=== PATIENT | male | born 1995 | race Caucasian/White ===

== ENCOUNTER 2016-06-07 23:18 | Observation (INO) | payer OTHER ==
[2016-06-07] MEDS ORDERED: ONDANSETRON 4 MG/2 ML VIAL IVP ONE (23:38)
[2016-06-07] MEDS ORDERED: HYDROmorphONE/DILAUDID 1 MG/ML SYR IVP ONE (23:38)
[2016-06-07 23:43] LABS: COLOR YELLOW; LEUKOCYTE ESTERASE,URINE 1+ (NEGATIVE); NITRITE,URINE NEGATIVE (NEGATIVE)
[2016-06-07 23:45] LABS: MUCUS 3+ /lpf (NONE-1+); RBC,URINE 50-182 /hpf (0-3); WBC,URINE 15-25 /hpf (0-3)
[2016-06-08 00:11] LABS: % IMMATURE GRANULYOCYTES 0.4 % (0.0-1.1); ABSOLUTE IMMATURE GRANULOCYTES 0.04 10^3/uL (0.00-0.10); ADD DIFF? NO; ADD MORPH? NO; ADD SCAN? NO; ATYPICAL LYMPHOCYTE FLAG 0 (0-99); FRAGMENT RBC FLAG 0 (0-99); HEMATOCRIT 43.2 % (40.0-51.0); HEMOGLOBIN 14.4 g/dL (13.7-17.5); LEFT SHIFT FLG 0 (0-99); LIPEMIA HEMOLYSIS FLAG 80 (0-99); MEAN CELL HEMOGLOBIN 29.9 pg (27.9-34.1); MEAN CELL HEMOGLOBIN CONCENTR. 33.3 g/dL (32.4-36.7); MEAN CELL VOLUME 89.8 fL (81.5-99.8); MEAN PLATELET VOLUME 10.9 fL (8.7-11.7); PLATELET CLUMPS FLAG 0 (0-99); PLATELET COUNT 228 10^3/uL (150-400); RED BLOOD CELL COUNT 4.81 10^6/uL (4.40-6.38); RED CELL DISTRIBUTION WIDTH 12.5 % (11.5-15.2)
[2016-06-08] MEDS ORDERED: HYDROmorphONE/DILAUDID 1 MG/ML SYR IVP ONE ×2 (00:19→00:46)
[2016-06-08 00:24] LABS: ANION GAP 14 mEq/L (8-16); CALCIUM 9.9 mg/dL (8.5-10.4); CARBON DIOXIDE 24 mEq/l (22-31); CHLORIDE 103 mEq/L (97-110); CREATININE 1.1 mg/dL (0.7-1.3); GLOMERULAR FILTRATION RATE > 60; GLUCOSE 103 mg/dL (70-100); SODIUM 141 mEq/L (134-144)
[2016-06-08] MEDS ORDERED: NS 1,000 ML IV ONE (00:46)
--- NOTE | 2016-06-08 00:53 | EDPHY ---
H & P Stated Complaint: RIGHT FLANK PAIN , HX OF KIDNEY STENTS DUE TO BLOOD CLOTS IN PAST Time Seen by Provider: 06/08/16 00:18 HPI/ROS: HPI The patient presents with right-sided flank pain which began at approximately 6: 00 p.m. tonight which started slowly and has gotten progressively worse. The pain is severe, does not radiate, is associated with nausea and vomiting. It is associated with hematuria. It is described as a dull ache. 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 The patient had a fall at this time and developed a stage IV kidney laceration and that is when this was discovered. He was stented at that time. The stent was removed in March, however he did not tolerate this well and thus the stent was replaced. He about 3 weeks ago had similar pain which resolved after about 6-8 hours. At that time it was thought that there was some blood or mucus plugging his stent. He is currently followed by Dr. Headr , a urologist in [place]. REVIEW OF SYSTEMS Constitutional: No fever, no chills. Eyes: No discharge. ENT: No sore throat. Cardiovascular: No chest pain, no palpitations. Respiratory: No cough, no shortness of breath. Gastrointestinal: No abdominal pain, no vomiting. Genitourinary: No hematuria. Musculoskeletal: No back pain. Skin: No rashes. Neurological: No headache. PMHx: UJP obstruction, hx of splenic injury Soc Hx: visiting from [place] for a lacrosse tournament PHYSICAL General Appearance: Alert, no distress Eyes: Pupils equal and round no pallor or injection ENT, Mouth: Mucous membranes moist Respiratory: There are no retractions, lungs are clear to auscultation Cardiovascular: Tachycardic rate and reg rhythm Gastrointestinal: Abdomen is soft and non-tender, no masses, bowel sounds normal Back: Right flank tender to palpation Neurological: A&O, moves all extremities Skin: Warm and dry, no rashes Musculoskeletal: Neck is supple non tender Extremities: symmetrical, full range of motion Psychiatric: Patient is oriented X 3, there is no agitation Source: Patient, Family Exam Limitations: No limitations - Personal History Current Tetanus/Diphtheria Vaccine: Yes Current Tetanus Diphtheria and Acellular Pertussis (TDAP): Yes - Medical/Surgical History Hx Asthma: No Hx Chronic Respiratory Disease: No Hx Diabetes: No Hx Cardiac Disease: No Hx Renal Disease: Yes Hx Cirrhosis: No Hx Alcoholism: No Hx HIV/AIDS: No Hx Splenectomy or Spleen Trauma: No Other PMH: UPJ OBSTRUCTION, KIDNEY LAC, STENT IN KIDNEY, - Social History Smoking Status: Never smoked Constitutional: Initial Vital Signs Temperature (C) 36.8 C 06/07/16 23:19 Heart Rate 73 06/07/16 23:19 Respiratory Rate 18 06/07/16 23:19 Blood Pressure 152/76 H 06/07/16 23:19 O2 Sat (%) 92 06/07/16 23:19 O2 Delivery Mode Room Air Allergies/Adverse Reactions: No Known Allergies Allergy (Unverified 06/07/16 23:22) Home Medications: Medication Instructions Recorded Naproxen 250 mg PO BID 06/07/16 Medical Decision Making - Diagnostics Imaging: Renal ultrasound demonstrates severe right-sided hydronephrosis, discussed with Dr. Byrd of Radiology, images were reviewed by myself. Differential Diagnosis: This is an otherwise healthy 21-year-old male with history of UPJ obstruction, currently being managed with stent, who presents with acute onset of right- sided flank pain accompanied by nausea and vomiting as well as hematuria. On exam, he is uncomfortable appearing, with flank tenderness. Differential diagnosis includes stent occlusion, pyelonephritis, ureterolithiasis. In the emergency room, the patient was given IV fluids and several rounds of pain medication with some improvement in his pain. I had a long conversation with the patient's father who lives in [place] and was able to provide excellent historical features of the patient's clinical course. He is quite worried about his son and is unable to be with him currently because of the snowstorm on the [facility]. He does have his son's medical records including images which he can provide if needed. The case was discussed with Dr. Magdaleno of Urology and the urologist will see the patient in consultation tomorrow. We will hold on antibiotics for now with the patient's urine is likely not infected acutely. I will admit the patient to the hospitalist service, the case was discussed with Dr. Maravilla who will admit him. - Data Points Laboratory Results: Laboratory Results 06/07/16 23:50 06/07/16 23:50 03/13/17 03/13/17 03/13/17 23:50 23:50 23:25 WBC 10.31 10^3/uL H 10^3/uL (3.80-9.50) RBC 4.81 10^6/uL 10^6/uL (4.40-6.38) Hgb 14.4 g/dL g/dL (13.7-17.5) Hct 43.2 % % (40.0-51.0) MCV 89.8 fL fL (81.5-99.8) MCH 29.9 pg pg (27.9-34.1) MCHC 33.3 g/dL g/dL (32.4-36.7) RDW 12.5 % % (11.5-15.2) Plt Count 228 10^3/uL 10^3/uL (150-400) MPV 10.9 fL fL (8.7-11.7) Neut % (Auto) 69.3 % % (39.3-74.2) Lymph % (Auto) 21.9 % % (15.0-45.0) Lyman % (Auto) 6.2 % % (4.5-13.0) Eos % (Auto) 1.9 % % (0.6-7.6) Baso % (Auto) 0.3 % % (0.3-1.7) Nucleat RBC Rel Count 0.0 % % (0.0-0.2) Absolute Neuts (auto) 7.14 10^3/uL H 10^3/uL (1.70-6.50) Absolute Lymphs (auto) 2.26 10^3/uL 10^3/uL (1.00-3.00) Absolute Monos (auto) 0.64 10^3/uL 10^3/uL (0.30-0.80) Absolute Eos (auto) 0.20 10^3/uL 10^3/uL (0.03-0.40) Absolute Basos (auto) 0.03 10^3/uL 10^3/uL (0.02-0.10) Absolute Nucleated RBC 0.00 10^3/uL 10^3/uL (0-0.01) Immature Gran % 0.4 % % (0.0-1.1) Immature Gran # 0.04 10^3/uL 10^3/uL (0.00-0.10) Sodium 141 mEq/L mEq/L (134-144) Potassium 4.0 mEq/L mEq/L (3.5-5.2) Chloride 103 mEq/L mEq/L (97-110) Carbon Dioxide 24 mEq/l mEq/l (22-31) Anion Gap 14 mEq/L mEq/L (8-16) BUN 23 mg/dL mg/dL (7-23) Creatinine 1.1 mg/dL mg/dL (0.7-1.3) Estimated GFR > 60 Glucose 103 mg/dL H mg/dL (70-100) Calcium 9.9 mg/dL mg/dL (8.5-10.4) Urine Color YELLOW Urine Appearance HAZY Urine pH 5.0 (5.0-7.5) Ur Specific [place] 1.029 (1.002-1.030) Urine Protein 2+ H (NEGATIVE) Urine Ketones NEGATIVE (NEGATIVE) Urine Blood 3+ H (NEGATIVE) Urine Nitrate NEGATIVE (NEGATIVE) Urine Bilirubin NEGATIVE (NEGATIVE) Urine Urobilinogen NEGATIVE EU EU (0.2-1.0) Ur Leukocyte Esterase 1+ H (NEGATIVE) Urine RBC 50-182 /hpf H /hpf (0-3) Urine WBC 15-25 /hpf H /hpf (0-3) Ur Epithelial Cells Not Reported Urine Mucus 3+ /lpf H /lpf (NONE-1+) Ur Culture Indicated? INDICATED H (NI) Urine Glucose NEGATIVE (NEGATIVE) Medications Given: Discontinued Medications Acetaminophen (Tylenol) 1,000 mg PO EDNOW ONE Stop: 06/08/16 01:38 Last Admin: 06/08/16 02:00 Dose: 1,000 mg Hydromorphone HCl (Dilaudid) 0.5 mg IVP EDNOW ONE Stop: 06/07/16 23:39 Last Admin: 06/07/16 23:59 Dose: 0.5 mg Hydromorphone HCl (Dilaudid) 0.5 mg IVP EDNOW ONE Stop: 06/08/16 00:20 Last Admin: 06/08/16 00:20 Dose: 0.5 mg Hydromorphone HCl (Dilaudid) 0.5 mg IVP EDNOW ONE Stop: 06/08/16 00:47 Last Admin: 06/08/16 00:57 Dose: 0.5 mg Sodium Chloride (Ns) 1,000 mls @ 0 mls/hr IV ONCE ONE PRN Reason: Wide Open Stop: 06/08/16 00:47 Last Admin: 06/08/16 00:56 Dose: 1,000 mls Lidocaine HCl (Lidocaine Hcl 2%) 120 mg IVP ONCE ONE Stop: 06/08/16 01:33 Last Admin: 06/08/16 02:03 Dose: 120 mg Ondansetron HCl (Zofran) 4 mg IVP EDNOW ONE Stop: 06/07/16 23:39 Last Admin: 06/08/16 00:00 Dose: 4 mg Ondansetron HCl (Zofran Odt) 4 mg PO EDNOW ONE Stop: 06/08/16 00:58 Last Admin: 06/08/16 01:01 Dose: 4 mg Departure - Departure Disposition: [facility] Inpatient Acute Clinical Impression: Hydronephrosis, right, Ureteropelvic junction (UPJ) obstruction, Acute right flank pain, Hematuria Condition: Fair
[2016-06-08] MEDS ORDERED: ONDANSETRON 4 MG/2 ML VIAL ONE (00:55)
[2016-06-08] MEDS ORDERED: ONDANSETRON DISINTEGRATING 4 MG TAB PO ONE (00:57)
[2016-06-08] MEDS ORDERED: LIDOCAINE 2% 100 MG/5 ML SYR IVP ONE (01:32)
[2016-06-08] MEDS ORDERED: ACETAMINOPHEN 500 MG TAB PO ONE (01:37)
[2016-06-08] MEDS ORDERED: oxyCODONE IR 5 MG TAB PO PRN (02:14)
[2016-06-08] MEDS ORDERED: LORazepam 2 MG/ML INJ IVP PRN (02:14)
[2016-06-08] MEDS ORDERED: ONDANSETRON 4 MG/2 ML VIAL IVP PRN (02:14)
[2016-06-08] MEDS ORDERED: ACETAMINOPHEN 500 MG TAB PO PRN (02:14)
[2016-06-08] MEDS ORDERED: ONDANSETRON DISINTEGRATING 4 MG TAB PO PRN (02:14)
[2016-06-08] MEDS ORDERED: HYDROmorphONE/DILAUDID 1 MG/ML SYR IVP PRN (02:14)
[2016-06-08] MEDS: NS 1,000 ML IV SCH ×3 (02:30→17:22)
--- NOTE | 2016-06-08 05:43 | PDGENHP ---
History and Physical - Chief Complaint R flank pain - History of Present Illness Patient is a 21-year-old male with a history of right UPJ stricture requiring stenting after a kidney trauma in December 2015, who presents to the ED complaining severe right flank pain. Patient states since stricture was discovered in December, ureteral stent was placed, trial of removal of stent was attempted several months ago, however, stricture was still present, so ureteral stent was replaced. Since that time, patient has one episode of intense flank pain about 6 weeks ago, for which he went to the ED, it was determined his ureteral stent was clogged causing obstruction. He was observed and the obstruction cleared without intervention (was presumed to be a blood clot that passed the stent). He presents today again with acute flank pain consistent with his previous ED presentation. He states symptoms started at about 6pm with sharp pain, which intensified throughout the evening. He denies any associated fevers, chills, nausea, vomiting. He did pass some small flecks of blood in his urine yesterday and today. Patient is from [place] and in [place] with his [employer] team for a tournament. He denies any recent trauma to his flank or kidney. On arrival to the ED, patient was afebrile and hemodynamically stable, but in severe pain. abdominal ultrasound revealed severe right hydronephrosis. Labs revealed mild leukocytosis, normal BMP and UA was negative for evidence of infection, although did show hematuria. Urology was consulted by the ED and recommended admission, will evaluate need for percutaneous intervention in AM. Patient was then admitted to the hospital service for further management. History Information - Allergies/Home Medication List Allergies/Adverse Reactions: No Known Allergies Allergy (Unverified 06/07/16 23:22) Home Medications: Naproxen 250 mg PO BID 06/07/16 [Last Taken Unknown] I have personally reviewed and updated: family history, medical history, social history, surgical history - Past Medical History no pertinent PMH - Surgical History Additional surgical history: ureteral stent. wisdom teeth removal - Family History Positive for: non-pertinent - Social History Smoking Status: Never smoked Alcohol Use: Occasionally Drug Use: None Additional social history: Patient is a senior in college at [employer], in [place] for a lacrosse tournament with his college team. Originally from [place]. Review of Systems ROS: 10pt was reviewed & negative except for what was stated in HPI & below Physical Exam Temp Pulse Resp BP Pulse Ox 37.2 C 68 16 139/62 H 93 06/08/16 04:00 06/08/16 04:00 06/08/16 04:00 06/08/16 04:00 06/08/16 04:00 Constitutional: no apparent distress, appears nourished, uncomfortable Eyes: PERRL, anicteric sclera, EOMI Ears, Nose, Mouth, Throat: moist mucous membranes, hearing normal, ears appear normal, no oral mucosal ulcers Cardiovascular: regular rate and rhythym, no murmur, rub, or gallop, pulses symmetric bilaterally, No JVD, No edema Peripheral Pulses: 2+: dorsalis-pedis (R), dorsalis-pedis (L) Respiratory: no respiratory distress, no rales or rhonchi, clear to auscultation Gastrointestinal: normoactive bowel sounds, soft, non-tender abdomen, no palpable masses Genitourinary: no bladder fullness, no bladder tenderness, other (R CVA tenderness) Skin: warm, normal color, no rashes or abrasions, no fluctuance, no induration, No mottled Musculoskeletal: full muscle strength, no muscle tenderness, normal joint ROM, no joint effusions Neurologic: AAOx3, sensation intact bilaterally, CN II-XII Intact, No weakness, No numbness, No pronator drift Psychiatric: interacting appropriately, not anxious, not encephalopathic, thought process linear Lab Data & Imaging Review 06/07/16 23:50 06/07/16 23:50 WBC 10.31 10^3/uL (3.80-9.50) H 06/07/16 23:50 RBC 4.81 10^6/uL (4.40-6.38) 06/07/16 23:50 Hgb 14.4 g/dL (13.7-17.5) 06/07/16 23:50 Hct 43.2 % (40.0-51.0) 06/07/16 23:50 MCV 89.8 fL (81.5-99.8) 06/07/16 23:50 MCH 29.9 pg (27.9-34.1) 06/07/16 23:50 MCHC 33.3 g/dL (32.4-36.7) 06/07/16 23:50 RDW 12.5 % (11.5-15.2) 06/07/16 23:50 Plt Count 228 10^3/uL (150-400) 06/07/16 23:50 MPV 10.9 fL (8.7-11.7) 06/07/16 23:50 Neut % (Auto) 69.3 % (39.3-74.2) 06/07/16 23:50 Lymph % (Auto) 21.9 % (15.0-45.0) 06/07/16 23:50 Smyth % (Auto) 6.2 % (4.5-13.0) 06/07/16 23:50 Eos % (Auto) 1.9 % (0.6-7.6) 06/07/16 23:50 Baso % (Auto) 0.3 % (0.3-1.7) 06/07/16 23:50 Nucleat RBC Rel Count 0.0 % (0.0-0.2) 06/07/16 23:50 Absolute Neuts (auto) 7.14 10^3/uL (1.70-6.50) H 06/07/16 23:50 Absolute Lymphs (auto) 2.26 10^3/uL (1.00-3.00) 06/07/16 23:50 Absolute Monos (auto) 0.64 10^3/uL (0.30-0.80) 06/07/16 23:50 Absolute Eos (auto) 0.20 10^3/uL (0.03-0.40) 06/07/16 23:50 Absolute Basos (auto) 0.03 10^3/uL (0.02-0.10) 06/07/16 23:50 Absolute Nucleated RBC 0.00 10^3/uL (0-0.01) 06/07/16 23:50 Immature Gran % 0.4 % (0.0-1.1) 06/07/16 23:50 Immature Gran # 0.04 10^3/uL (0.00-0.10) 06/07/16 23:50 Sodium 141 mEq/L (134-144) 06/07/16 23:50 Potassium 4.0 mEq/L (3.5-5.2) 06/07/16 23:50 Chloride 103 mEq/L (97-110) 06/07/16 23:50 Carbon Dioxide 24 mEq/l (22-31) 06/07/16 23:50 Anion Gap 14 mEq/L (8-16) 06/07/16 23:50 BUN 23 mg/dL (7-23) 06/07/16 23:50 Creatinine 1.1 mg/dL (0.7-1.3) 06/07/16 23:50 Estimated GFR > 60 06/07/16 23:50 Glucose 103 mg/dL (70-100) H 06/07/16 23:50 Calcium 9.9 mg/dL (8.5-10.4) 06/07/16 23:50 Urine Color YELLOW 06/07/16 23:25 Urine Appearance HAZY 06/07/16 23:25 Urine pH 5.0 (5.0-7.5) 06/07/16 23:25 Ur Specific [place] 1.029 (1.002-1.030) 06/07/16 23:25 Urine Protein 2+ (NEGATIVE) H 06/07/16 23:25 Urine Ketones NEGATIVE (NEGATIVE) 06/07/16 23:25 Urine Blood 3+ (NEGATIVE) H 06/07/16 23:25 Urine Nitrate NEGATIVE (NEGATIVE) 06/07/16 23:25 Urine Bilirubin NEGATIVE (NEGATIVE) 06/07/16 23:25 Urine Urobilinogen NEGATIVE EU (0.2-1.0) 06/07/16 23:25 Ur Leukocyte Esterase 1+ (NEGATIVE) H 06/07/16 23:25 Urine RBC 50-182 /hpf (0-3) H 06/07/16 23:25 Urine WBC 15-25 /hpf (0-3) H 06/07/16 23:25 Ur Epithelial Cells Not Reported 06/07/16 23:25 Urine Mucus 3+ /lpf (NONE-1+) H 06/07/16 23:25 Ur Culture Indicated? INDICATED (NI) H 06/07/16 23:25 Urine Glucose NEGATIVE (NEGATIVE) 06/07/16 23:25 Visualized and Interpreted imaging results: Yes Interpretation: Renal US: severe R hydronephrosis Assessment & Plan Assessment: patient is a 21-year-old male with a history of right renal trauma the head resulted in UPJ stricture that required stenting. Ureteral stent had obstructed once before and the patient presents to the ED today with complaint of right flank pain. Imaging reveals obstruction of right ureteral stent with causing severe hydronephrosis again. Plan: # severe R hydronephrosis due to obstructed R ureteral stent This presentation occurred to the patient about 1 month ago and the obstruction cleared without need for intervention. Given severity of hydronephrosis seen on US, urology has been consulted. Will f/u uro recommendations regarding need for percutaneous intervention. There does not appear to be associated infection, will hold off on antibiotics at this time. Cont IVF hydration and pain control. # dispo: admit under observation status # gen: NPO for possible procedure Full code
[2016-06-08 06:25] LABS: % IMMATURE GRANULYOCYTES 0.3 % (0.0-1.1); ABSOLUTE IMMATURE GRANULOCYTES 0.02 10^3/uL (0.00-0.10); ADD DIFF? NO; ADD MORPH? NO; ADD SCAN? NO; ATYPICAL LYMPHOCYTE FLAG 10 (0-99); FRAGMENT RBC FLAG 0 (0-99); HEMATOCRIT 38.6 % (40.0-51.0); HEMOGLOBIN 12.8 g/dL (13.7-17.5); LEFT SHIFT FLG 0 (0-99); LIPEMIA HEMOLYSIS FLAG 80 (0-99); MEAN CELL HEMOGLOBIN 29.8 pg (27.9-34.1); MEAN CELL HEMOGLOBIN CONCENTR. 33.2 g/dL (32.4-36.7); PLATELET CLUMPS FLAG 0 (0-99); PLATELET COUNT 180 10^3/uL (150-400); RED BLOOD CELL COUNT 4.29 10^6/uL (4.40-6.38); RED CELL DISTRIBUTION WIDTH 12.5 % (11.5-15.2)
[2016-06-08 06:34] LABS: INR 1.12 (0.83-1.16); PROTIME(PATIENT) 14.3 SEC (12.0-15.0)
[2016-06-08 06:35] LABS: APTT 29.7 SEC (23.0-38.0)
[2016-06-08 06:56] LABS: ANION GAP 11 mEq/L (8-16); CALCIUM 9.5 mg/dL (8.5-10.4); CARBON DIOXIDE 24 mEq/l (22-31); CHLORIDE 107 mEq/L (97-110); CREATININE 1.1 mg/dL (0.7-1.3); GLOMERULAR FILTRATION RATE > 60; GLUCOSE 86 mg/dL (70-100); MAGNESIUM 2.1 mg/dL (1.6-2.3); POTASSIUM 4.2 mEq/L (3.5-5.2); SODIUM 142 mEq/L (134-144)
--- NOTE | 2016-06-08 08:57 | HOSPPROG ---
Hospitalist Progress Note Assessment/Plan: Patient is a 21-year-old male with a history of right renal trauma the head resulted in UPJ stricture that required stenting. Ureteral stent had obstructed once before and the patient presents to the ED today with complaint of right flank pain. Imaging reveals obstruction of right ureteral stent with causing severe hydronephrosis again. Ashlyn was admitted earlier this morning / I came by to follow up with him. Patient states his pain is better and he is anxious to be discharged. Explained to him that a urologist needs to take a look at his imaging data. He has significant hydronephrosis on the right side. # severe R hydronephrosis due to obstructed R ureteral stent -urology to see today -reviewed his case with admitting hospitalist physician -came by to f/u with him #Pyuria -Dr Duran spoke with urology who recommended holding off on abx # dispo: pending #. Plan: Dr Crane to further evaluate. Subjective: Ashlyn is feeling better. Wants to go as soon as possible. Objective: Vital Signs Temp Pulse Resp BP Pulse Ox 36.7 C 72 20 135/81 H 96 06/08/16 08:00 06/08/16 08:00 06/08/16 08:00 06/08/16 08:00 06/08/16 08:00 Laboratory Results 06/08/16 05:25 06/08/16 05:25 06/07/16 06/08/16 06/09/16 05:59 05:59 05:59 Intake Total 1100 Output Total 400 450 Balance 700 -450 PT 14.3 SEC (12.0-15.0) 06/08/16 05:25 INR 1.12 (0.83-1.16) 06/08/16 05:25 - Physical Exam Constitutional: no apparent distress, appears nourished, not in pain Eyes: PERRL Ears, Nose, Mouth, Throat: hearing normal Respiratory: no respiratory distress Genitourinary: other ( No flank pain) Skin: warm Musculoskeletal: full muscle strength Neurologic: AAOx3 Psychiatric: interacting appropriately ICD10 Worksheet Patient Problems: Problems Problem Status Onset Acute right flank pain Acute Hematuria Acute Hydronephrosis, right Acute Ureteropelvic junction (UPJ) obstruction Acute
[2016-06-08 11:53] VITALS: O2SAT 94
[2016-06-08 16:26] VITALS: BP 137/85; PULSE 64; RESP 18; TEMP 97.9
--- NOTE | 2016-06-08 18:10 | SOAPPROG ---
LEANNE Progress Note Assessment/Plan: Assessment: Renal colic with known right UPJ obstruction, s/p ureteral stent placement most recently in 04/2016. Doing well at this time. Plan: Discharge pt. Rx. for oxycodone provided. Dict. # [id number] Objective: Vital Signs Temp Pulse Resp BP Pulse Ox 36.6 C 64 18 137/85 H 94 06/08/16 16:00 06/08/16 16:00 06/08/16 16:00 06/08/16 16:00 06/08/16 16:00 Laboratory Results 06/08/16 05:25 06/08/16 05:25 06/07/16 06/08/16 06/09/16 05:59 05:59 05:59 Intake Total 1100 0 Output Total 400 1800 Balance 700 -1800 PT 14.3 SEC (12.0-15.0) 06/08/16 05:25 INR 1.12 (0.83-1.16) 06/08/16 05:25 ICD10 Worksheet Patient Problems: Problems Problem Status Onset Acute right flank pain Acute Hematuria Acute Hydronephrosis, right Acute Ureteropelvic junction (UPJ) obstruction Acute
--- NOTE | 2016-06-08 18:44 | GCON ---
[f rep st] CONSULTATION UROLOGY CONSULTATION DATE OF CONSULTATION: 06/08/2016 REFERRING PHYSICIAN: Hospitalist Service REASON FOR CONSULTATION: Symptomatic right ureteropelvic junction obstruction, status post stenting . HISTORY: This is a 21-year-old gentleman, who is currently in [place] for a lacrosse tournament an d is originally from the [facility], currently going to school in [place]. He started experie ncing right-sided flank pain that progressively quickly worsened yesterday evening, necessitating pr esentation in the emergency room early this morning. Ultrasound was performed, which revealed moder ate to severe right hydronephrosis. The patient was admitted for pain control thereafter. Since ad mission, the patient's condition has progressively improved. He is now asymptomatic and is voiding without difficulty. Prior to admission, he was experiencing some gross hematuria. He last played l [employer] on Tuesday, but denies any specific trauma. Past urologic history is remarkable for a right kidney laceration, which developed after falling gem n some stairs late last year. At that time, he presumably was found to have a ureteropelvic junctio n obstruction, in addition to the laceration, and ureteral stenting was performed in approximately 2015. The stent was subsequently removed in March. However, recurrent imaging revealed si gnificant obstruction of the right kidney, so a stent was replaced last month. This had all been do ne at [facility]. The plan at this point was to [facility]elling [facility] until the patient finished with college this semester and subsequently undergo definitive uretero pelvic junction repair. The patient denies any history of urinary tract infections, nor urinary tract issues prior to last y ear. PAST MEDICAL HISTORY: Possible gout. PAST SURGICAL HISTORY: Ureteral stenting as noted above. MEDICATIONS ON ADMISSION: Naprosyn 250 mg b.i.d. (for gouty diathesis). MEDICAL ALLERGIES: None known. FAMILY HISTORY: Noncontributory. SOCIAL HISTORY: The patient is single and is currently attending college at the [employer]. He is originally from [place] and is currently in [place] playing in a lacrosse tour nament. He is planning on returning to [place] on Tuesday. He denies the use of tobacco produ cts, nor illicit drugs. He consumes alcohol occasionally. REVIEW OF SYSTEMS: He is having some toe pain and tenderness related to gouty diathesis as mentione d above. Otherwise, negative except for mentioned in the HPI and past medical history. PHYSICAL EXAM: GENERAL: Well developed, well nourished white male, lying supine in bed, in no acut e distress. VITAL SIGNS: Blood pressure 137/85, pulse is 64, respirations 18, oxygen saturation is 94% on room air, temperature 36.6 Celsius. HEENT: Normocephalic, atraumatic. NECK: Supple. HEA RT: Regular rate. CHEST: Unlabored respiratory pattern. ABDOMEN: Soft without palpable masses. No obvious tenderness. No CVA tenderness presently. EXTREMITIES: Warm without cyanosis, clubbing , or edema. NEUROLOGIC: He is alert and oriented. He answers all questions appropriately with nor mal mood and affect. LABORATORY: CBC today is unremarkable. Chemistry panel is normal. Coagulation parameters normal. Urinalysis notable for 50-182 red blood cells and 15-25 white blood cells. No bacteria. Culture w as sent. IMAGING: KUB today: Upon my review, the right ureteral stent appears to be in good position. Daphne l ultrasound 06/07/2016: Upon my review, notable for moderate to severe right hydronephrosis. No o ther abnormalities are appreciated. There appears to be fairly good renal cortical preservation. L eft kidney is normal. IMPRESSION: Symptomatic right ureteropelvic junction obstruction with hydronephrosis and current in dwelling ureteral stent. The patient is currently doing much better and would like to be discharged , which I see no problem with at this time. PLAN: 1. Patient will be discharged with a prescription for oxycodone p.r.n. pain. He will also use Napr osyn or ibuprofen p.r.n. for less severe discomfort. 2. I have allowed him to continue playing lacrosse with the understanding that the more active he i s, the more stent-related discomfort and hematuria he may have, but I would not anticipate any irrev ersible damage ad a result of these symptoms. 3. The patient has been invited to contact me if he has any further issues while here in [place]. I have also discussed the situation with his father, and all questions were answered to both the micaela dewey and his father's satisfaction this evening. Thank you for this consultation. /[id number]/MODL
--- NOTE | 2016-06-08 20:24 | GDS ---
[f rep st] DISCHARGE SUMMARY DISCHARGE DIAGNOSES: 1. Severe right hydronephrosis due to an obstructed right ureteral stent. 2. Pyuria. CONSULTATIONS: Dr. Crane. BRIEF HISTORY: The patient is a 21-year-old male with a history of right renal trauma resulting in a UPJ stricture that required stenting. His stent had obstructed once before. The patient came to the emergency room today complaining of right flank pain. Imaging reveals obstruction of right ureteral stent causing severe hydronephrosis. He was seen and evaluated by Dr. Crane. He noted that the patient had symptomatic right ureteropelvic junction obstruction with hydronephrosis and current indwelling ureteral stent. The patient was doing markedly better and wanted to be discharged. Dr. Crane discharged him later this evening. He has allowed the patient to play lacrosse with the understanding that the more active he is, the more stent-related discomfort and hematuria he may have. He could follow up with Dr. Crane as needed if he has any further issues. CONDITION AT DISCHARGE: Stable. Blood pressure is 137/85, heart rate 64, respiratory rate 18, O2 saturation 94% , temperature is 36.6 Celsius. DISCHARGE MEDICATIONS: Please see the EMR. DISCHARGE INSTRUCTIONS: If he has worsening pain or any increasing blood with urination, return to the ER. /[id number]/MODL MTDD
== END 2016-06-08 18:27 | disposition home or self-care (01) ==
LOC: F3E 06-08 02:12
PROVIDERS: ADMIT Internal Medicine; ATTEND Internal Medicine
DX: N13.0 Hydronephrosis with ureteropelvic junction obstruction (principal); T83.86XA Thrombosis due to genitourinary prosthetic devices, implants and grafts, initial encounter; S37.09 Other injury of kidney; W10.8XXD Fall (on) (from) other stairs and steps, subsequent encounter; R31.9 Hematuria, unspecified; N23 Unspecified renal colic
CPT/HCPCS: 74000; 76770; G0378; 96374; J1170; J2001; J2405